=== PATIENT | male | born 1990 | race Two or more races ===

== ENCOUNTER → 2020-02-19 | Emergency (ER) | payer OTHER ==
[~2020-02-19] VITALS: Ht 165.1 cm; Wt 72.6 kg
== END ==
LOC: ED 11:57
PROC: 0RSKXZZ Reposition Left Shoulder Joint, External Approach (ICD-10-PCS; principal; 2020-02-19)
DX: S43.005A Unspecified dislocation of left shoulder joint, initial encounter (principal); W01.0XXA Fall on same level from slipping, tripping and stumbling without subsequent striking against object, initial encounter
CPT/HCPCS: 23650; 73020; 73030; 99152; 99153; 99283-25; J2704

== ENCOUNTER 2020-03-20 04:42 | Emergency (ER) | payer OTHER ==
[~2020-03-20] VITALS: Ht 165.1 cm; Wt 70.3 kg
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
== END 2020-03-20 06:54 | disposition home or self-care (01) ==
LOC: ED 04:42
DX: S30.1XXA Contusion of abdominal wall, initial encounter (principal); S20.212A Contusion of left front wall of thorax, initial encounter; V49.9XXA Car occupant (driver) (passenger) injured in unspecified traffic accident, initial encounter; F17.200 Nicotine dependence, unspecified, uncomplicated
CPT/HCPCS: 71260; 74177; 80053; 82150; 82550; 83690; 85025; 86850; 86900; 86901; 96374; 96375; 99284-25; G0480; J1170; J2405; J7030; Q9967